=== PATIENT | female | born 1980 | race Two or more races ===

== ENCOUNTER 2022-02-28 23:58 | Emergency (ER) | payer MEDICAID ==
[~2022-02-28] VITALS: Ht 152.4 cm; Wt 76.2 kg
[2022-03-01] MEDS ORDERED: ASPIRIN 81 MG TAB.CHEW PO ONE (00:30)
[2022-03-01 00:49] LABS: HEMATOCRIT 39.5 % (31.2-41.9); MEAN CORPUSCULAR HEMOGLOBIN 29.6 uug (24.7-32.8); MEAN CORPUSCULAR VOLUME 88.1 fL (75.5-95.3); PLATELET COUNT (AUTO) 297 K/uL (179-408)
[2022-03-01 01:03] LABS: CARBON DIOXIDE 26 mmol/L (21-32); CHLORIDE 104 mmol/L (98-107); CREATININE 0.6 mg/dL (0.6-1.3); GLUCOSE 90 mg/dL (74-106); POTASSIUM 3.2 mmol/L (3.5-5.1); UREA NITROGEN, BLOOD 12 mg/dL (7-18)
[2022-03-01 01:12] LABS: ALANINE AMINOTRANSFERASE 72 U/L (14-59); ALKALINE PHOSPHATASE 78 U/L (50-136); ASPARTATE AMINOTRANSFERASE 38 U/L (15-37); BILIRUBIN,DIRECT 0.1 mg/dL (0.0-0.2); BILIRUBIN,TOTAL 0.2 mg/dL (0.2-1.0); TOTAL PROTEIN, SERUM 7.2 g/dL (6.4-8.2)
[2022-03-01] MEDS ORDERED: POTASSIUM BICARBONATE/CIT AC 25 MEQ TABLET.EFF PO ONE (01:30)
[2022-03-01] MEDS ORDERED: POTASSIUM BICARBONATE/CIT AC 25 MEQ TABLET.EFF ONE (01:34)
[2022-03-01] MEDS ORDERED: ASPIRIN 81 MG TAB.CHEW ONE (01:34)
--- NOTE | 2022-03-01 01:44 | NUR ---
RECEIVED PATIENT IN ER FROM HOME, SEEN BY , ASPIRIN 162 MG PO, KLYTE 50 MEQ PO ADMINISTERED, BLOOD WORK DRAWN, AWAITING RESULTS.
--- NOTE | 2022-03-01 03:23 | NUR ---
ALL RESULTS CAME BACK MD MADE PATIENT AWARE, DISCHARGE INSTRUCTION GIVEN TO PATIENT AND PATIENT VERBALIZED UNDERSTANDING.
[2022-03-01 06:42] VITALS: BP 143/69
== END 2022-03-01 03:23 | disposition home or self-care (01) ==
LOC: ER 23:58
DX: R07.89 Other chest pain (principal); E87.6 Hypokalemia; K76.0 Fatty (change of) liver, not elsewhere classified; Z90.49 Acquired absence of other specified parts of digestive tract; E66.9 Obesity, unspecified; Z68.32 Body mass index [BMI] 32.0-32.9, adult
CPT/HCPCS: 36415; 71045; 83735; 84484; 85025; 93005; A4663